=== PATIENT | female | born 1990 ===

== ENCOUNTER 2016-06-03 00:58 | Emergency (ER) | payer SELFPAY ==
[2016-06-03] MEDS ORDERED: Sodium Chloride 0.9% 1,000 ML IV ONE (01:21)
[2016-06-03] MEDS ORDERED: Sodium Chloride 0.9% 1,000 ML ONE (01:27)
[2016-06-03 01:48] LABS: RBC URINE 1 /hpf (0-3); URINE BILIRUBIN NEGATIVE (NEGATIVE); URINE BLOOD 1+ (NEGATIVE); URINE COLOR Straw (YELLOW); URINE GLUCOSE (UA) NORMAL (Normal); URINE KETONE TRACE mg/dL (NEGATIVE); URINE LEUKOCYTE ESTERASE NEG Leu/uL (Negative); URINE PROTEIN NEGATIVE (NEGATIVE); URINE UROBILINOGEN NORMAL mg/dL (0.2-1.0)
[2016-06-03 01:49] LABS: BASO % 0.2 % (0.0-2.0); HEMATOCRIT 36.4 % (34.0-47.0); LYMPH # 0.8 K/uL (1.0-4.3); LYMPH % 8.4 % (20.0-40.0); MEAN CELL VOLUME 90.1 fL (81.0-99.0); MEAN CORPUSCULAR HGB CONC 32.2 g/dL (33.0-37.0); MEAN PLATELET VOLUME 7.6 fL (7.2-11.7); MONO # 0.6 K/uL (0.0-0.8); MONO % 6.7 % (0.0-10.0); PLATELET COUNT 290 K/uL (130-400); RED CELL DISTRIBUTION WIDTH 12.9 % (11.5-14.5)
[2016-06-03 01:59] LABS: CHLORIDE 97 mmol/L (98-107); POTASSIUM 3.2 mmol/L (3.6-5.2); SODIUM 136 mmol/L (132-148)
[2016-06-03 02:01] LABS: ALB/GLOB RATIO 1.2 (1.0-2.1); ALKALINE PHOSPHATASE 84 U/L (38-126); AST/SGOT 24 U/L (14-36); BILIRUBIN,TOTAL 0.3 mg/dL (0.2-1.3); BLOOD UREA NITROGEN 8 mg/dL (7-17); CARBON DIOXIDE 23 mmol/L (22-30); GFR AFRICAN-AMERICAN > 60; TOTAL PROTEIN 7.6 g/dL (6.3-8.3)
[2016-06-03 02:02] LABS: ALT/SGPT 15 U/L (9-52); CALCIUM 8.3 mg/dl (8.6-10.4); GLUCOSE,RANDOM 118 mg/dL (65-105)
[2016-06-03] MEDS ORDERED: Potassium Chloride 20 mEq ER Tab PO STA (02:27)
[2016-06-03] MEDS ORDERED: Potassium Chloride 20 mEq ER Tab PO ONE (02:32)
[2016-06-03 02:45] LABS: NEUTROPHIL 74 % (50-75); TOTAL CELLS COUNTED 100
[2016-06-03] MEDS ORDERED: Iodixanol 320 MG/ML 100 ML BOTTLE IV ONE (03:12)
--- NOTE | 2016-06-03 03:33 | C.PDOC ---
History Of Present Illness 25 year old female presents to the ER with a complaint of fever, diffuse abdominal pain that radiates to her chest, headache, nausea, and vomiting that began at 20:00. Patient states she tried Excedrin without relief. She denies cough, sore throat, rhinorrhea, dysuria/hematuria, vaginal bleeding/discharge. Time Seen by Provider: 06/03/16 01:08 Chief Complaint (Nursing): Fever History Per: Patient History/Exam Limitations: no limitations Onset/Duration Of Symptoms: Hrs (since 20:00) Current Symptoms Are (Timing): Still Present Severity: Moderate Location Of Pain/Discomfort: Diffuse Radiation Of Pain To:: Chest Associated Symptoms: Fever, Nausea, Vomiting. denies: Urinary Symptoms Exacerbating Factors: denies: Cough Abnormal Vaginal Bleeding: No Past Medical History Reviewed: Historical Data, Nursing Documentation, Vital Signs Vital Signs: Last Vital Signs Temp 99.8 F H 06/03/16 04:10 Pulse 92 H 06/03/16 04:10 Resp 18 06/03/16 04:10 BP 92/57 L 06/03/16 04:10 Pulse Ox 97 06/03/16 04:29 - Medical History PMH: No Chronic Diseases Family History: States: No Known Family Hx - Social History Hx Alcohol Use: No Hx Substance Use: No - Immunization History Hx Tetanus Toxoid Vaccination: No Hx Influenza Vaccination: No Hx Pneumococcal Vaccination: No Review Of Systems Except As Marked, All Systems Reviewed And Found Negative. Constitutional: Positive for: Fever Cardiovascular: Positive for: Chest Pain (Radiating from abdomen). Negative for : Palpitations Respiratory: Negative for: Cough, Shortness of Breath Gastrointestinal: Positive for: Nausea, Vomiting, Abdominal Pain (Diffuse). Negative for: Diarrhea Genitourinary: Negative for: Dysuria, Hematuria, Vaginal Discharge, Vaginal Bleeding Neurological: Positive for: Headache Physical Exam - Physical Exam Appears: Non-toxic, Other (uncomfortable appearing) Skin: Normal Color, Warm, Dry, No Rash Head: Normacephalic Oral Mucosa: Moist Throat: Normal, No Erythema, No Exudate Neck: Normal, Normal ROM Chest: Symmetrical Cardiovascular: Rhythm Regular (Tachycardic) Respiratory: Normal Breath Sounds, No Rales, No Rhonchi, No Wheezing Gastrointestinal/Abdominal: Bowel Sounds, Soft, Tenderness (Diffuse TTP, (-) Cross's, (-) McBurney's), No Guarding, No Rebound Back: No CVA Tenderness Neurological/Psych: Oriented x3 ED Course And Treatment - Laboratory Results Result Diagrams: 06/03/16 01:43 06/03/16 01:43 O2 Sat by Pulse Oximetry: 97 (Room air) Pulse Ox Interpretation: Normal - Radiology CXR: Interpreted by Me, Viewed By Me (no infiltrates/effusions) - CT Scan/US ct scan abd/pelvis Other Rad Studies (CT/US): Read By Radiologist, Radiology Report Reviewed CT/US Interpretation: Accession No. : [id number]. Patient Name / ID : FARHANA MARTIN / [id number]. Exam Date : 06/03/2016 03:43:50 ( Approved ). Study Comment : Sex / Age : F / 25Y. Creator : Leidy Franklin MD. Dictator : Leidy Franklin MD. Carbon Brush Maker : Well Driller : Leidy Franklin MD. Approver2 : Report Date : 06/03/2016 09:20:28. My Comment : . PROCEDURE: CT Abdomen and Pelvis with contrast. HISTORY: Diffuse abdominal pain, fever, vomiting, diarrhea. COMPARISON: None. TECHNIQUE: CT scan of the abdomen and pelvis was performed after administration of intravenous contrast. Oral contrast was not administered. Coronal and sagittal reformatted images were obtained. Contrast dose: 100 mL Visipaque. Radiation dose: Total exam DLP = 325.38 mGy- cm. This CT exam was performed using one or more of the following dose reduction techniques: Automated exposure control, adjustment of the mA and/or kV according to patient size, and/or use of iterative reconstruction technique. FINDINGS: LOWER THORAX: The lung bases are clear. LIVER: The liver is normal in size and there is homogeneous enhancement. No intrahepatic ductal dilatation or focal lesion. GALLBLADDER AND BILE DUCTS: No calcified gallstones, wall thickening or pericholecystic fluid. PANCREAS: The pancreas is normal in size and there is homogeneous enhancement without ductal dilatation or focal mass. SPLEEN: The spleen is normal in size and there is homogeneous enhancement without focal lesion. ADRENALS: Normal in size without discrete nodule. KIDNEYS AND URETERS: Both kidneys are normal in size and there is homogeneous enhancement without hydronephrosis or focal mass. VASCULATURE: Normal. No aortic aneurysm. BOWEL: There are fluid-filled small bowel loops. No evidence of bowel dilatation or obstruction. The colon is unremarkable. APPENDIX: Normal appendix. PERITONEUM: No free fluid. No free air. LYMPH NODES: No enlarged lymph nodes. BLADDER: Unremarkable. REPRODUCTIVE: The uterus is normal in size. No adnexal masses. BONES: No acute fracture. Within normal limits for the patient's age. OTHER FINDINGS: None. IMPRESSION: Fluid-filled normal caliber small bowel loops, nonspecific and could represent nonspecific enteritis. No evidence of bowel obstruction. No CT evidence for acute appendicitis. A preliminary report was provided by [facility]. Progress Note: Blood work, UA, CXR, influenza swab ordered and reviewed. Patient given PO tylenol, IV pepcid and IV NS bolus. 4:30am- Patient reassessed , is currently resting comfortably and states she feels much better. Ct scan shows enteritis - PO Cipro and PO Flagyl given. On exam, abdomen is currently soft and nontender. Patient is comfortable being discharged home, was given Rxs for Cipro, Flagyl, Zofran and Bentyl. She was instructed to follow up with PMD/clinic in 1-2 days, and she understands she should return to ED if symptoms worsen. Reevaluation Time: 02:45 Reassessment Condition: Unchanged (Patient reassessed, is still having significant abdominal pain, and is now more tender in RLQ. CT scan abd/pelvis ordered.) Disposition Counseled Patient/Family Regarding: Studies Performed, Diagnosis, Need For Followup, Rx Given - Disposition Referrals: [facility] [Outside] Disposition: HOME/ ROUTINE Disposition Time: 04:30 Condition: STABLE Additional Instructions: FOLLOW UP WITH YOUR DOCTOR IN 1-2 DAYS USE MEDICATIONS DIRECTED DRINK PLENTY OF CLEAR FLUIDS RETURN TO ER IF SYMPTOMS WORSEN Prescriptions: Dicyclomine [Bentyl] 20 mg PO Q6 PRN #12 tab PRN Reason: ABDOMINAL CRAMPING Ciprofloxacin [Cipro] 1 tab PO BID #14 tab metroNIDAZOLE [Flagyl] 500 mg PO TID #21 tab Ondansetron [Zofran Odt] 4 mg PO Q8 PRN #12 odt PRN Reason: Nausea/Vomiting Instructions: Enteritis (ED) Forms: School Excuse, Work Excuse Print Language: GRENADIAN - POA Present On Arrival: None - Clinical Impression Clinical Impression: Enteritis, Fever, Nausea, Vomiting, Diarrhea - Scribe Statement The provider has reviewed the documentation as recorded by the Jsoy Murray All medical record entries made by the Renyibponcho were at my direction and personally dictated by me. I have reviewed the chart and agree that the record accurately reflects my personal performance of the history, physical exam, medical decision making, and the department course for this patient. I have also personally directed, reviewed, and agree with the discharge instructions and disposition.
[2016-06-03 04:15] VITALS: BP 92/57; PULSE 92; RESP 18; TEMP 99.8
[2016-06-03 04:29] VITALS: O2SAT 97
--- NOTE | 2016-06-03 08:53 | RAD ---
PROCEDURE: CHEST RADIOGRAPH, 1 VIEW HISTORY: fever COMPARISON: None available. FINDINGS: LUNGS: Mild patchy increased markings at the lung bases may represent prominence of the vasculature. Clinical correlation. PLEURA: No pneumothorax or pleural fluid seen. CARDIOVASCULAR: Normal. OSSEOUS STRUCTURES: No significant abnormalities. VISUALIZED UPPER ABDOMEN: Normal. OTHER FINDINGS: None. IMPRESSION: Mild patchy increased markings at the lung bases may represent prominence of the vasculature. Clinical correlation.
--- NOTE | 2016-06-03 09:21 | CT ---
PROCEDURE: CT Abdomen and Pelvis with contrast HISTORY: Diffuse abdominal pain, fever, vomiting, diarrhea COMPARISON: None. TECHNIQUE: CT scan of the abdomen and pelvis was performed after administration of intravenous contrast. Oral contrast was not administered. Coronal and sagittal reformatted images were obtained. Contrast dose: 100 mL Visipaque Radiation dose: Total exam DLP = 325.38 mGy-cm. This CT exam was performed using one or more of the following dose reduction techniques: Automated exposure control, adjustment of the mA and/or kV according to patient size, and/or use of iterative reconstruction technique. FINDINGS: LOWER THORAX: The lung bases are clear. LIVER: The liver is normal in size and there is homogeneous enhancement. No intrahepatic ductal dilatation or focal lesion. GALLBLADDER AND BILE DUCTS: No calcified gallstones, wall thickening or pericholecystic fluid. PANCREAS: The pancreas is normal in size and there is homogeneous enhancement without ductal dilatation or focal mass. SPLEEN: The spleen is normal in size and there is homogeneous enhancement without focal lesion. ADRENALS: Normal in size without discrete nodule. KIDNEYS AND URETERS: Both kidneys are normal in size and there is homogeneous enhancement without hydronephrosis or focal mass. VASCULATURE: Normal. No aortic aneurysm. BOWEL: There are fluid-filled small bowel loops. No evidence of bowel dilatation or obstruction. The colon is unremarkable. APPENDIX: Normal appendix. PERITONEUM: No free fluid. No free air. LYMPH NODES: No enlarged lymph nodes. BLADDER: Unremarkable. REPRODUCTIVE: The uterus is normal in size. No adnexal masses. BONES: No acute fracture. Within normal limits for the patient's age OTHER FINDINGS: None. IMPRESSION: Fluid-filled normal caliber small bowel loops, nonspecific and could represent nonspecific enteritis. No evidence of bowel obstruction. No CT evidence for acute appendicitis. A preliminary report was provided by [facility].
== END 2016-06-03 05:01 | disposition home or self-care (01) ==
LOC: C.ER 00:58
DX: K52.9 Noninfective gastroenteritis and colitis, unspecified (principal); R50.9 Fever, unspecified; R11.2 Nausea with vomiting, unspecified; E87.6 Hypokalemia
CPT/HCPCS: 71010; 74177; 80053; 81001; 83690; 84703; 85025; 87040; 87804; 93005; 96361; 96374; 96375; 99285; J1885; J7040; Q9967

== ENCOUNTER 2016-06-06 01:02 | Emergency (ER) | payer SELFPAY ==
--- NOTE | 2016-06-06 01:51 | C.PDOC ---
History Of Present Illness 25 y/o female presents to ED with complaints of experiencing "tingling" sensation on face, bilateral arms and legs for 1 day. Patient was seen 3 days ago for stomach infection and was prescribed ciprol and flagyl. Patient is concerned she is experiencing side effects from medication. Status post abdominal pain improved. Patient denies fever, chills, N/V/D, GI bleed, SOB, Chest pain or any other complaints. Time Seen by Provider: 06/06/16 01:21 Chief Complaint (Nursing): Medical Clearance History Per: Patient History/Exam Limitations: no limitations Onset/Duration Of Symptoms: Days Current Symptoms Are (Timing): Still Present Severity: Mild Reports Recently: Seen In ED Recent travel outside of the [place]: No Additional History Per: Patient Past Medical History Reviewed: Historical Data, Nursing Documentation, Vital Signs Vital Signs: Last Vital Signs Temp 98.2 F 06/06/16 03:33 Pulse 72 06/06/16 03:33 Resp 20 06/06/16 03:33 BP 100/60 06/06/16 03:33 Pulse Ox 98 06/06/16 03:33 Family History: States: Unknown Family Hx - Social History Hx Alcohol Use: No Hx Substance Use: No - Immunization History Hx Tetanus Toxoid Vaccination: No Hx Influenza Vaccination: No Hx Pneumococcal Vaccination: No Review Of Systems Except As Marked, All Systems Reviewed And Found Negative. Constitutional: Negative for: Fever, Chills Eyes: Negative for: Vision Change Cardiovascular: Negative for: Chest Pain Respiratory: Negative for: Cough, Shortness of Breath Gastrointestinal: Negative for: Nausea, Vomiting, Diarrhea Musculoskeletal: Negative for: Neck Pain Neurological: Negative for: Change in Speech, Seizures, Dizziness Physical Exam - Physical Exam Appears: Non-toxic, No Acute Distress Skin: Normal Color, Warm Head: Atraumatic, Normacephalic Eye(s): bilateral: Normal Inspection, PERRL, EOMI Nose: Normal Oral Mucosa: Moist Tongue: Normal Appearing Lips: Normal Appearing Throat: Normal Neck: Normal ROM, Supple Cardiovascular: Rhythm Regular Respiratory: Normal Breath Sounds, No Rales, No Rhonchi, No Wheezing Gastrointestinal/Abdominal: Normal Exam, No Tenderness, No Guarding, No Rebound Extremity: Normal ROM Extremity: Bilateral: Atraumatic Neurological/Psych: Oriented x3, Normal Speech, Normal Cognition, Normal Motor, Normal Sensation Gait: Steady ED Course And Treatment - Laboratory Results Result Diagrams: 06/06/16 02:05 06/06/16 02:05 O2 Sat by Pulse Oximetry: 99 (room air ) Pulse Ox Interpretation: Normal Medical Decision Making Medical Decision Making: Impression: Old records reviewed, the patient was last seen on 06/03/16 for abdominal pain and diarrhea, patient had lab work and CT scan which revealed non -specific enteritis. Physical exam was normal, lab work is normal. Patient states she had some GERD burning in throat and maalox was given. On re-exam, the patient reports improvement of symptoms. Lungs are CTA, heart is RRR, abdomen is soft, non-tender and tolerating PO well. Disposition - Disposition Referrals: [facility] [Outside] Disposition: HOME/ ROUTINE Disposition Time: 03:00 Condition: GOOD Additional Instructions: On re-exam, the patient reports improvement of symptoms. Lungs are CTA, heart is RRR, ambulatory in the ED with steady gait. Follow up with the medical doctor /clinic within 1-2 days. Return if worsened. Prescriptions: Famotidine [Pepcid] 20 mg PO BID #20 tab Instructions: Paresthesia (ED) - Clinical Impression Clinical Impression: Paresthesia - PA / PAPER GRADER / Resident Statement MD/DO has examined the patient and agrees with the treatment plan. - Scribe Statement Mata Kolb All medical record entries made by the Scribe were at my direction and personally dictated by me. I have reviewed the chart and agree that the record accurately reflects my personal performance of the history, physical exam, medical decision making, and the department course for this patient. I have also personally directed, reviewed, and agree with the discharge instructions and disposition.
[2016-06-06 02:08] LABS: EOS # 0.1 K/uL (0.0-0.7); EOS % 1.6 % (0.0-4.0); LYMPH # 1.9 K/uL (1.0-4.3); LYMPH % 45.4 % (20.0-40.0); MEAN CELL VOLUME 90.3 fL (81.0-99.0); MEAN CORPUSCULAR HEMOGLOBIN 29.5 pg (27.0-31.0); MEAN CORPUSCULAR HGB CONC 32.6 g/dL (33.0-37.0); MEAN PLATELET VOLUME 7.5 fL (7.2-11.7); MONO # 0.5 K/uL (0.0-0.8); MONO % 12.1 % (0.0-10.0); NRBC % 0.1 % (0.0-2.0); RED CELL DISTRIBUTION WIDTH 12.8 % (11.5-14.5); WHITE BLOOD COUNT 4.1 K/uL (4.8-10.8)
[2016-06-06 02:17] LABS: CHLORIDE 100 mmol/L (98-107); POTASSIUM 3.8 mmol/L (3.6-5.2); SODIUM 141 mmol/L (132-148)
[2016-06-06 02:18] LABS: RBC URINE 1 /hpf (0-3); URINE BACTERIA RARE (<OCC); URINE BILIRUBIN NEGATIVE (NEGATIVE); URINE COLOR Yellow (YELLOW); URINE GLUCOSE (UA) NORMAL (Normal); URINE KETONE TRACE mg/dL (NEGATIVE); URINE PROTEIN NEGATIVE (NEGATIVE); URINE UROBILINOGEN NORMAL mg/dL (0.2-1.0); WBC URINE < 1 /hpf (0-5)
[2016-06-06 02:19] LABS: ALB/GLOB RATIO 1.2 (1.0-2.1); AST/SGOT 28 U/L (14-36); BILIRUBIN,TOTAL < 0.1 mg/dL (0.2-1.3); CARBON DIOXIDE 24 mmol/L (22-30); GFR AFRICAN-AMERICAN > 60; TOTAL PROTEIN 7.4 g/dL (6.3-8.3)
[2016-06-06 02:20] LABS: ALKALINE PHOSPHATASE 67 U/L (38-126); ALT/SGPT 16 U/L (9-52); BLOOD UREA NITROGEN 11 mg/dL (7-17); CALCIUM 8.9 mg/dl (8.6-10.4); GLUCOSE,RANDOM 88 mg/dL (65-105)
[2016-06-06 02:54] LABS: URINE BLOOD TRACE (NEGATIVE); URINE LEUKOCYTE ESTERASE NEGATIVE Leu/uL (Negative)
[2016-06-06] MEDS ORDERED: Alum-Mag Hydrox-Simethicone Susp (30 mL) PO STA (02:54)
[2016-06-06] MEDS ORDERED: Aluminum Hydroxide/Magnesium Hydroxide Susp (30 mL) ONE (03:07)
[2016-06-06 03:35] VITALS: BP 100/60; PULSE 72; RESP 20; TEMP 98.2
[2016-06-06 05:16] VITALS: O2SAT 99
== END 2016-06-06 03:33 | disposition home or self-care (01) ==
LOC: C.ER 01:02
DX: R20.9 Unspecified disturbances of skin sensation (principal)

== ENCOUNTER 2017-02-23 10:15 | Emergency (ER) | payer OTHER ==
[2017-02-23 10:23] VITALS: BP 106/71; PULSE 88; RESP 17; TEMP 98.6; O2SAT 99
--- NOTE | 2017-02-23 11:14 | C.PDOC ---
History Of Present Illness 26 y/o female presents to the ER for evaluation of pain in her right breast. Patient reports that she has a bump next to the areola in the right breast. She denies having any fever, chills, abdominal pain, and other medical problems. Time Seen by Provider: 02/23/17 10:33 Chief Complaint (Nursing): Breast Problem History Per: Patient History/Exam Limitations: no limitations Onset/Duration Of Symptoms: Hrs Current Symptoms Are (Timing): Still Present Severity: Moderate Past Medical History Reviewed: Historical Data, Nursing Documentation, Vital Signs Vital Signs: Last Vital Signs Temp 98.6 F 02/23/17 10:21 Pulse 88 02/23/17 10:21 Resp 17 02/23/17 10:21 BP 106/71 02/23/17 10:21 Pulse Ox 99 02/23/17 12:03 - Medical History PMH: No Chronic Diseases Surgical History: No Surg Hx Family History: States: No Known Family Hx - Social History Hx Alcohol Use: No Hx Substance Use: No - Immunization History Hx Tetanus Toxoid Vaccination: No Hx Influenza Vaccination: No Hx Pneumococcal Vaccination: No Review Of Systems Except As Marked, All Systems Reviewed And Found Negative. Constitutional: Negative for: Fever, Chills Gastrointestinal: Negative for: Nausea, Vomiting, Abdominal Pain Physical Exam - Physical Exam Appears: Non-toxic, No Acute Distress, Other (awake, alert) Skin: Normal Color, Warm Head: Atraumatic, Normacephalic Eye(s): bilateral: Normal Inspection, PERRL Nose: Normal Oral Mucosa: Moist Neck: Supple Chest: Symmetrical, Tenderness (small nodular firm mobile cyst like structure tender to touch present at 12:00 above nipple of right breast), Other (no swelling, no erythema) Extremity: Normal ROM Neurological/Psych: Oriented x3, Normal Speech, Normal Cognition, Normal Motor, Normal Sensation ED Course And Treatment O2 Sat by Pulse Oximetry: 99 (RA) Pulse Ox Interpretation: Normal Disposition Counseled Patient/Family Regarding: Need For Followup, Rx Given - Disposition Referrals: [facility] [Outside] [facility] [Outside] Disposition: HOME/ ROUTINE Disposition Time: 11:12 Condition: STABLE Additional Instructions: Chantel un seguimiento con healy mdico. Use miguel angel compresa caliente en el ellen afectada. Regrese al departamento de emergencias si el ellen se pone denise, hinchada o desarrolla fiebre. Prescriptions: Ibuprofen [Motrin] 600 mg PO TID #15 tab Instructions: Cyst (ED) Forms: [facility] (Armenian), Work Excuse - POA Present On Arrival: None - Clinical Impression Clinical Impression: Cyst of breast - Scribe Statement The provider has reviewed the documentation as recorded by the Josy Perez Provider Attestation: All medical record entries made by the Josy were at my direction and personally dictated by me. I have reviewed the chart and agree that the record accurately reflects my personal performance of the history, physical exam, medical decision making, and the department course for this patient. I have also personally directed, reviewed, and agree with the discharge instructions and disposition.
== END 2017-02-23 11:20 | disposition home or self-care (01) ==
LOC: C.ER 10:15
DX: N60.01 Solitary cyst of right breast (principal)